=== PATIENT | female | born 1960 | race American Indian/Alaskan Native ===

== ENCOUNTER 2017-11-02 08:17 | Outpatient (CLI) | payer OTHER ==
--- NOTE | 2017-11-04 11:42 | Magnetic Resonance Report ---
BILATERAL BREAST MRI WITHOUT AND WITH CONTRAST: 11/02/17 08:17:00 CLINICAL: High risk for breast cancer(21% lifetime risk). Probably benign calcifications in the left breast at 6 o'clock 9 cm from the nipple on recent mammograms. COMPARISON:06/14/17, 06/17/17 and 06/18/17 mammograms.. TECHNIQUE: Axial 1.0-mm T1 without, axial high resolution 2.0-mm T2 and axial 1.0-mm dynamic Vibrant high-resolution postcontrast T1 fat saturation sequences on a 1.5 [place] magnet. The examination was performed with an 8 channel dedicated [place] breast coil. Post processing with CAD and subtraction was performed on an [employer] workstation. 20 cc of Multihance was injected without incident for the contrast portion of the exam. Consent was obtained prior to the administration of the contrast. FINDINGS: Right: Moderate background parenchymal enhancement. No mass or suspicious enhancement. No suspicious right axillary or right internal mammary lymph nodes. Left: Moderate background parenchymal enhancement. No mass or suspicious enhancement. No lesion to correlate with the group of calcifications at 6 o'clock identified on recent mammograms. No suspicious left axillary or left internal mammary lymph nodes. IMPRESSION: Negative study. Recommend management of the left breast based on the most recent mammogram which warrants a six-month followup mammogram with magnification views for calcifications. RIGHT BI-RADS 1 -- Negative LEFT BI-RADS 3 -- Probably Benign
== END 2017-11-02 08:18 | disposition home or self-care (01) ==
LOC: SPVIMAG 08:17
PROVIDERS: ATTEND Surgery
DX: R92.1 Mammographic calcification found on diagnostic imaging of breast (principal); Z80.3 Family history of malignant neoplasm of breast
CPT/HCPCS: A9577; C8908; 77059

== ENCOUNTER 2017-11-09 08:05 | Outpatient (CLI) | payer OTHER ==
--- NOTE | 2017-11-09 09:02 | Mammography Report ---
Diagnostic left mammogram. History: Six-month followup for microcalcifications. Findings: Comparison is made to the previous study from [place] [facility] performed on July 01, 2017. Spot magnification compression images demonstrate the cluster of microcalcifications at the 6:00 position of the left breast. There is layering in it least one of the microcalcifications on the 90degree mediolateral view. The morphology and number of calcifications is unchanged and there is no evidence of mass or distortion. Impression: Stable left microcalcifications which are probably benign. BI-RADS code: 3. Recommendation: 6 month followup study.
== END 2017-11-09 08:06 | disposition home or self-care (01) ==
LOC: SPVWC 08:05
PROVIDERS: ATTEND Surgery
DX: R92.0 Mammographic microcalcification found on diagnostic imaging of breast (principal); Z80.3 Family history of malignant neoplasm of breast